=== PATIENT | female | born 1940 | race Caucasian/White ===

== ENCOUNTER 2016-12-31 11:20 | Outpatient (CLI) | payer OTHER ==
--- NOTE | 2016-12-31 12:19 | DIAGNOSTIC IMAGING REPORT ---
PROCEDURE: DEXA BONE DENSITY STUDY CLINICAL INDICATION: History of malignancy and hysterectomy. COMPARISON: 07/03/2011 FINDINGS: LUMBAR SPINE: Bone mineral density 0.954 g/cm2, T score -0.8, normal, change from previous 1.3 percent LEFT HIP: Bone mineral density 0.818 g/cm2, T score -1.0, low normal, change from previous -4.9 percent (significant). . LEFT FEMORAL NECK: Bone mineral density 0.657 g/cm2, T score -1.7, osteopenia, change from previous -3.1 percent . FRACTURE RISK CALCULATION ( when applicable): 10-year fracture risk of a major osteoporotic fracture 14% and of a hip fracture 3.4% (T score greater or equal to -1.0 to: NORMAL) (T score from -1.1 to -2.4: OSTEOPENIA) (T score ess than or equal to -2.5: OSTEOPOROSIS) IMPRESSION: 1. Significant interval decrease in bone mineral density of the total left hip compared to the previous study. 2. Osteopenia of the left femoral neck, slightly worse compared to the previous study. 3. Slight elevation in 10-year fracture is compared to the prior study (risk of fracture now 14%, previously 10%).
== END 2016-12-31 23:00 ==
LOC: XR SRH 11:20
DX: N91.2 Amenorrhea, unspecified (principal); M85.88 Other specified disorders of bone density and structure, other site; Z90.710 Acquired absence of both cervix and uterus